=== PATIENT | female | born 1940 | race African-American/Black ===

== ENCOUNTER 2024-10-26 14:22 | Observation (INO) | payer OTHER ==
[2024-10-26 15:38] LABS: BASO % 0.7 % (0-2.0); EOS % 2.6 % (0-4.5); HEMATOCRIT 33.8 % (32.4-45.2); HEMOGLOBIN 10.8 GM/dL (10.7-15.3); LYMPH % 16.6 % (8-40); MCH 29.1 pg (25.7-33.7); MCHC 31.8 g/dl (32.0-36.0); MEAN CELL VOLUME 91.5 fl (80-96); MEAN PLT VOLUME 9.9 fl (7.5-11.1); MONO % 7.9 % (3.8-10.2); NEUT % 72.2 % (42.8-82.8); PLATELET COUNT 205 10^3/uL (134-434); WHITE BLOOD COUNT 11.5 K/mm3 (4.0-10.0)
[2024-10-26 15:53] LABS: ACTIVATED PTT 26.1 SECONDS (25.2-36.5); INR 1.05 (0.83-1.09); PROTHROMBIN TIME (PATIENT) 11.4 SEC (9.7-13.0)
[2024-10-26 15:56] LABS: CHLORIDE 103 mmol/L (98-107); SODIUM 134 mmol/L (136-145)
[2024-10-26 15:58] LABS: ALBUMIN 3.1 g/dl (3.4-5.0); BLOOD UREA NITROGEN 54.3 mg/dL (7-18); CALCIUM 10.1 mg/dL (8.5-10.1); CO2 23 mmol/L (21-32); GLUCOSE,RANDOM 163 mg/dL (74-106); MAGNESIUM 1.4 mg/dL (1.8-2.4)
[2024-10-26 16:01] LABS: ANION GAP 8 mmol/L (4-13); CREATININE 1.6 mg/dL (0.55-1.3); POTASSIUM 7.1 mmol/L (3.5-5.1); SGOT/AST 67 U/L (15-37)
[2024-10-26 16:03] LABS: BILIRUBIN,TOTAL 0.5 mg/dL (0.2-1); TOT PROT 7.5 g/dl (6.4-8.2)
[2024-10-26 16:04] LABS: ALK PHOS 42 U/L (45-117); SGPT/ALT 22 U/L (13-61)
[2024-10-26] MEDS ORDERED: MAG HYDROX/AL HYDROX/SIMETH 30 ML UNIT-DOSE CUP ONE (16:16)
[2024-10-26] MEDS ORDERED: ACETAMINOPHEN INJECTION 100 ML ONE (16:16)
[2024-10-26] MEDS ORDERED: FAMOTIDINE 20 MG/50 ML IVPB 20 MG/50 ML MG IVPB ONE (16:16)
[2024-10-26] MEDS: MAG HYDROX/AL HYDROX/SIMETH 30 ML UNIT-DOSE CUP PO ONE (16:31)
[2024-10-26] MEDS: ACETAMINOPHEN 1000 MG/100 ML BAG IVPB ONE (16:32)
[2024-10-26] MEDS: FAMOTIDINE 20 MG/50 ML IVPB 20 MG/50 ML MG IVPB ONE (16:32)
[2024-10-26 16:42] LABS: CHLORIDE 104 mmol/L (98-107); SODIUM 135 mmol/L (136-145)
[2024-10-26 16:43] LABS: CALCIUM 9.9 mg/dL (8.5-10.1)
[2024-10-26 16:44] LABS: BLOOD UREA NITROGEN 54.6 mg/dL (7-18); CO2 22 mmol/L (21-32); GLUCOSE,RANDOM 161 mg/dL (74-106)
[2024-10-26 16:46] LABS: ANION GAP 9 mmol/L (4-13); POTASSIUM 6.8 mmol/L (3.5-5.1)
[2024-10-26 16:47] LABS: CREATININE 1.5 mg/dL (0.55-1.3)
[2024-10-26 17:48] LABS: POTASSIUM 4.7 mmol/L (3.5-5.1)
[2024-10-26 17:49] LABS: CALCIUM 9.6 mg/dL (8.5-10.1)
[2024-10-26 17:50] LABS: BLOOD UREA NITROGEN 53.6 mg/dL (7-18)
[2024-10-26 17:53] LABS: CREATININE 1.5 mg/dL (0.55-1.3)
[2024-10-26] MEDS ORDERED: ASPIRIN 81 MG CHEWABLE TABLETS ONE (18:22)
[2024-10-26] MEDS: ASPIRIN 81 MG CHEWABLE TABLETS PO ONE (18:32)
[2024-10-26 20:58] LABS: ALBUMIN 3.1 g/dl (3.4-5.0)
[2024-10-26 21:01] LABS: BILIRUBIN,DIRECT 0.1 mg/dL (0.0-0.2)
[2024-10-26 21:03] LABS: BILIRUBIN,TOTAL 0.3 mg/dL (0.2-1); TOT PROT 6.8 g/dl (6.4-8.2)
[2024-10-26 21:05] LABS: N-TERMINAL BNP 582.6 pg/ml (5-450)
[2024-10-26 21:17] VITALS: BMI 27.6
[2024-10-26] MEDS ORDERED: QUEtiapine FUMARATE 25 MG TABLET ONE (21:23)
[2024-10-26] MEDS: ATORVASTATIN CA 20 MG TABLET (FP) PO SCH (21:52)
[2024-10-26] MEDS: MAGNESIUM SULFATE IN WATER 2 GM/50 ML IVPB IVPB ONE (21:53)
[2024-10-26] MEDS: QUEtiapine FUMARATE 50 MG TABLET PO SCH (21:54)
[2024-10-26] MEDS: MEMANTINE HCL 10 MG TABLET (FP) PO SCH (21:54)
[2024-10-26] MEDS: DONEPEZIL HCL 10 MG TABLET (FP) PO SCH (21:54)
[2024-10-26] MEDS: HEPARIN NA (PORCINE) 5,000 UNITS/ML 1ML VIAL SQ SCH (21:54)
[2024-10-27] MEDS: INSULIN ASPART SLIDING SCALE (NOVOLOG) 1 VIAL SQ SCH (02:56)
[2024-10-27 07:58] LABS: HEMATOCRIT 32.8 % (32.4-45.2); HEMOGLOBIN 10.4 GM/dL (10.7-15.3); MCHC 31.7 g/dl (32.0-36.0); MEAN CELL VOLUME 91.3 fl (80-96); MEAN PLT VOLUME 10.4 fl (7.5-11.1); PLATELET COUNT 204 10^3/uL (134-434); RBC 3.59 M/mm3 (3.60-5.2); RDW 17.9 % (11.6-15.6); WHITE BLOOD COUNT 8.9 K/mm3 (4.0-10.0)
[2024-10-27 08:16] LABS: POTASSIUM 4.6 mmol/L (3.5-5.1)
[2024-10-27 08:24] LABS: ALBUMIN 3.1 g/dl (3.4-5.0); BLOOD UREA NITROGEN 46.9 mg/dL (7-18); CALCIUM 9.7 mg/dL (8.5-10.1)
[2024-10-27 08:27] LABS: CREATININE 1.3 mg/dL (0.55-1.3)
[2024-10-27 08:28] LABS: BILIRUBIN,TOTAL 0.5 mg/dL (0.2-1); TOT PROT 6.6 g/dl (6.4-8.2)
[2024-10-27] MEDS: CLOPIDOGREL BISULFATE 75 MG TABLET (FP) PO SCH (09:24)
[2024-10-27] MEDS: PANTOPRAZOLE 20 MG TABLET PO SCH (09:24)
[2024-10-27] MEDS ORDERED: PATIENT'S OWN MEDICATION (NON-FORMULARY) (Memantine Hcl/Donepezil Hcl [Namzaric 28 Mg-10 M PO SCH (10:00)
[2024-10-27 13:09] LABS: EPI CELLS >36 /uL (0-25.1); HYALINE CASTS 0 /uL (0-3.1); PH,URINE 5.5 (5.0-8.0); URINE APPEARANCE CLEAR; URINE BACTERIA 1949 /uL (0-1359); URINE BILIRUBIN NEGATIVE (NEGATIVE); URINE COLOR YELLOW; URINE GLUCOSE (UA) NEGATIVE (NEGATIVE); URINE KETONE NEGATIVE (NEGATIVE); URINE LEUK ESTERASE 1+ (NEGATIVE); URINE NITRITE NEGATIVE (NEGATIVE); URINE PROTEIN NEGATIVE (NEGATIVE); URINE RBC 36 /uL (0-23.9); URINE UROBILINOGEN 0.2 mg/dL (0.2-1.0); URINE WBC 34 /uL (0-25.8)
[2024-10-27] MEDS: ASPIRIN 81 MG CHEWABLE TABLETS PO SCH (13:26)
[2024-10-27] MEDS: ASPIRIN 81 MG CHEWABLE TABLETS PO ONE (13:33)
[2024-10-27] MEDS: hydrOXYzine PAMOATE 25 MG CAPSULE (FP) PO ONE (14:18)
[2024-10-27] MEDS ORDERED: hydrOXYzine PAMOATE 25 MG CAPSULE (FP) PO PRN (17:34)
[2024-10-27] MEDS: FAMOTIDINE 20 MG TABLET PO SCH (18:09)
[2024-10-27 18:25] LABS: HEMATOCRIT 32.7 % (32.4-45.2); HEMOGLOBIN 10.3 GM/dL (10.7-15.3); MCH 28.8 pg (25.7-33.7); MCHC 31.6 g/dl (32.0-36.0); MEAN PLT VOLUME 10.5 fl (7.5-11.1); PLATELET COUNT 238 10^3/uL (134-434); RBC 3.59 M/mm3 (3.60-5.2); RDW 17.8 % (11.6-15.6); WHITE BLOOD COUNT 9.2 K/mm3 (4.0-10.0)
[2024-10-27 18:53] LABS: POTASSIUM 4.4 mmol/L (3.5-5.1)
[2024-10-27 18:55] LABS: ALBUMIN 3.5 g/dl (3.4-5.0); BLOOD UREA NITROGEN 46.9 mg/dL (7-18); CALCIUM 9.8 mg/dL (8.5-10.1); MAGNESIUM 1.8 mg/dL (1.8-2.4)
[2024-10-27 18:58] LABS: CREATININE 1.5 mg/dL (0.55-1.3)
[2024-10-27 19:00] LABS: BILIRUBIN,TOTAL 0.3 mg/dL (0.2-1); TOT PROT 7.3 g/dl (6.4-8.2)
[2024-10-27] MEDS: ATORVASTATIN CA 80 MG TABLET (FP) PO SCH (21:06)
[2024-10-28 08:45] LABS: POTASSIUM 4.2 mmol/L (3.5-5.1)
[2024-10-28 08:55] LABS: ALBUMIN 3.3 g/dl (3.4-5.0); MAGNESIUM 1.8 mg/dL (1.8-2.4)
[2024-10-28 08:56] LABS: BLOOD UREA NITROGEN 39.2 mg/dL (7-18); CALCIUM 9.7 mg/dL (8.5-10.1)
[2024-10-28 08:58] LABS: CREATININE 1.2 mg/dL (0.55-1.3)
[2024-10-28 09:00] LABS: TOT PROT 6.8 g/dl (6.4-8.2)
[2024-10-28 09:01] LABS: BILIRUBIN,TOTAL 0.5 mg/dL (0.2-1)
[2024-10-29 06:35] VITALS: PULSE 69
[2024-10-29 08:54] VITALS: BP 150/67; RESP 18; TEMP 98.4
== END 2024-10-29 14:29 | disposition home or self-care (01) ==
LOC: JER 14:22 → JERBED 18:57 → J4W 20:43
PROVIDERS: ADMIT Internal Medicine; ATTEND Student in an Organized Health Care Education/Training Program
PROC: 3E033NZ Introduction of Analgesics, Hypnotics, Sedatives into Peripheral Vein, Percutaneous Approach (ICD-10-PCS; principal; 2024-10-26)
PROC: 3E033GC Introduction of Other Therapeutic Substance into Peripheral Vein, Percutaneous Approach (ICD-10-PCS; 2024-10-26)
PROC: 3E013VG Introduction of Insulin into Subcutaneous Tissue, Percutaneous Approach (ICD-10-PCS; 2024-10-26)
DX: E11.22 Type 2 diabetes mellitus with diabetic chronic kidney disease (principal); I12.9 Hypertensive chronic kidney disease with stage 1 through stage 4 chronic kidney disease, or unspecified chronic kidney disease; N18.2 Chronic kidney disease, stage 2 (mild); E78.5 Hyperlipidemia, unspecified; G30.1 Alzheimer's disease with late onset; F02.80 Dementia in other diseases classified elsewhere, unspecified severity, without behavioral disturbance, psychotic disturbance, mood disturbance, and anxiety; Z87.891 Personal history of nicotine dependence; E11.9 Type 2 diabetes mellitus without complications
CPT/HCPCS: 0241U-QW; 36415; 71045-TC-FY; 76705-TC; 80048; 80053; 80061; 80076; 81003; 82962; 83036; 83690; 83735; 83880; 84484; 85025; 85027; 85610; 85730; 87086; 93005; 93010; 96365; 96372; 96375; 99285-25; G0378; J0131; J1644